=== PATIENT | female | born 2000 | race Two or more races ===

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

== ENCOUNTER 2020-12-04 20:03 | Emergency (ER) | payer OTHER, SELFPAY ==
[2020-12-04] MEDS ORDERED: Ibuprofen 800 MG TAB ONE (20:28)
[2020-12-04] MEDS ORDERED: Ondansetron ODT 4 MG TAB ONE (20:28)
[2020-12-06 15:51] LABS: SARS-CoV-2 PCR by NAA Not Detected (NotDetected)
== END 2020-12-04 20:36 | disposition home or self-care (01) ==
LOC: MADERS 20:03
DX: R05 Cough (principal); R51.9 Headache, unspecified; R50.9 Fever, unspecified; R04.0 Epistaxis; R09.81 Nasal congestion; R53.83 Other fatigue; Z20.822 Contact with and (suspected) exposure to COVID-19
CPT/HCPCS: 99283; Q0162; U0003; U0005

== ENCOUNTER 2021-06-18 17:33 | Emergency (ER) | payer OTHER, SELFPAY | END 2021-06-18 19:24 | disposition home or self-care (01) | LOC: MADERS 17:33 | DX: R05.9 Cough, unspecified (principal) | CPT/HCPCS: 99283 ==